=== PATIENT | male | born 1950 | race Caucasian/White ===

== ENCOUNTER → 2017-02-26 | Outpatient (CLI) | payer OTHER | END | disposition home or self-care (01) | LOC: KCIC US 09:27 | DX: K76.0 Fatty (change of) liver, not elsewhere classified (principal) | CPT/HCPCS: 76700 ==

== ENCOUNTER → 2017-04-30 | Outpatient (CLI) | payer OTHER ==
[2017-04-30] MEDS: IOHEXOL 240 MG/ML 50ML VIAL. PO (10:19)
[2017-04-30] MEDS: IOHEXOL 300 MG/ML 100ML VIAL. IV (10:19)
== END | disposition home or self-care (01) ==
LOC: KCIC CT 08:54
DX: N28.89 Other specified disorders of kidney and ureter (principal)
CPT/HCPCS: 74178; 82565; Q9966; Q9967

== ENCOUNTER → 2017-06-05 | Outpatient (CLI) | payer OTHER | END | disposition home or self-care (01) | LOC: KCIC 12:59 | DX: M79.89 Other specified soft tissue disorders (principal); M25.562 Pain in left knee | CPT/HCPCS: 73562 ==

== ENCOUNTER → 2017-06-22 | Outpatient (CLI) | payer OTHER ==
[2017-06-22] MEDS: REGADENOSON 0.4 MG/5 ML DISP.SYRIN. IV (10:35)
== END | disposition home or self-care (01) ==
LOC: ECHO 08:05
DX: I48.91 Unspecified atrial fibrillation (principal); I36.1 Nonrheumatic tricuspid (valve) insufficiency; I25.2 Old myocardial infarction
CPT/HCPCS: 78452; 93017; 93306; 96374; 96375; 96376; A9500; J2785

== ENCOUNTER 2017-06-29 06:30 | Outpatient (CLI) | payer OTHER ==
[2017-06-29 07:10] LABS: HEMATOCRIT 44.7 % (39.0-53.0); HEMOGLOBIN 15.7 g/dL (13.0-17.5); MEAN CORPUSCULAR HEMOGLOBIN 34 pg (25-35); MEAN CORPUSCULAR HGB CONC 35 g/dL (31-37); MEAN CORPUSCULAR VOLUME 98 fL (79-100); PLATELET COUNT 152 x10^3/uL (140-400); RED BLOOD COUNT 4.57 x10^6/uL (4.30-5.70); RED CELL DISTRIBUTION WIDTH 14.1 % (11.5-14.5); WHITE BLOOD COUNT 7.5 x10^3/uL (4.0-11.0)
[2017-06-29 07:19] LABS: INR 1.1 (0.8-1.1); PROTHROMBIN TIME PATIENT 13.7 SEC (11.7-14.0)
[2017-06-29] MEDS ORDERED: LIDOCAINE 2% 20 ML VIAL. (07:23)
[2017-06-29] MEDS ORDERED: IODIXANOL 320 MG/ML 100 ML VIAL. ×2 (07:23→08:21)
[2017-06-29 07:40] LABS: ANION GAP 10 (6-14); BLOOD UREA NITROGEN 24 mg/dL (8-26); CALCIUM 8.8 mg/dL (8.5-10.1); CARBON DIOXIDE 26 mmol/L (21-32); CHLORIDE 108 mmol/L (98-107); GFR 74.8; GLUCOSE 112 mg/dL (70-99); SODIUM 144 mmol/L (136-145)
[2017-06-29] MEDS ORDERED: fentaNYL PF VIAL 100 MCG/2 ML VIAL (07:54)
[2017-06-29] MEDS ORDERED: MIDAZOLAM HCL/PF 2 MG/2 ML VIAL. (07:54)
[2017-06-29] MEDS ORDERED: VERAPAMIL 5 MG/2 ML VIAL. (07:54)
[2017-06-29] MEDS ORDERED: HEPARIN for IV BOLUS 10,000 UNIT/10 ML VIAL. (07:54)
[2017-06-29] MEDS ORDERED: NITROGLYCERIN 200 MCG/2 ML SYRINGE FOR CATH/VASC LAB. ×2 (07:55→09:40)
[2017-06-29] MEDS ORDERED: CONTRAST GIVEN MC (08:30)
[2017-06-29] MEDS: NITROGLYCERIN 200 MCG/2 ML SYRINGE FOR CATH/VASC LAB. IART (08:34)
[2017-06-29] MEDS: IODIXANOL 320 MG/ML 100 ML VIAL. IART (08:34)
[2017-06-29] MEDS: LIDOCAINE 2% 20 ML VIAL. IJ (08:34)
[2017-06-29] MEDS: NITROGLYCERIN 200 MCG/2 ML SYRINGE FOR CATH/VASC LAB. ICAR (08:35)
[2017-06-29] MEDS: MIDAZOLAM HCL/PF 2 MG/2 ML VIAL. IV (08:35)
[2017-06-29] MEDS: VERAPAMIL 5 MG/2 ML VIAL. IART (08:35)
[2017-06-29] MEDS: fentaNYL PF VIAL 100 MCG/2 ML VIAL IV (08:36)
[2017-06-29] MEDS: HEPARIN for IV BOLUS 10,000 UNIT/10 ML VIAL. IV (08:37)
[2017-06-29] MEDS: HEPARIN for IV BOLUS 10,000 UNIT/10 ML VIAL. IART (08:37)
[2017-06-29] MEDS ORDERED: 0.9 % SODIUM CHLORIDE 10 ML DISP.SYRIN. IV (10:00)
[2017-06-29] MEDS ORDERED: NITROGLYCERIN SUBLINGUAL 0.4 MG BOTTLE OF 25. SL (10:00)
== END 2017-06-29 11:24 | disposition home or self-care (01) ==
LOC: CCL 06:30
DX: I25.10 Atherosclerotic heart disease of native coronary artery without angina pectoris (principal); I48.91 Unspecified atrial fibrillation; I42.9 Cardiomyopathy, unspecified; I10 Essential (primary) hypertension
CPT/HCPCS: 36415; 80048; 85027; 85610; 93458; 93571; 99152; 99153; C1769; C1887; C1892; J1644; J2250; J3010; J3490

== ENCOUNTER → 2018-09-14 | Outpatient (CLI) | payer OTHER ==
[2017-09-01 11:20] VITALS: BP 124/82
[~2018-09-14] MED LIST: ALBU2.5V8 INH; APIX5TAB PO; ASPI81TA50 PO; BUDE10.2 IH; FURO-69 PO; METO-239 PO; NAPR-683 PO; PRED-220 PO; SACU1TAB PO
[2018-09-14 08:28] LABS: BASO # 0.1 x10^3/uL (0.0-0.2); BASO % 1 % (0-3); EOS # 0.5 x10^3/uL (0.0-0.7); EOS % 6 % (0-3); HEMATOCRIT 48.8 % (39.0-53.0); HEMOGLOBIN 17.1 g/dL (13.0-17.5); LYMPH # 2.3 x10^3/uL (1.0-4.8); LYMPH % 30 % (24-48); MEAN CORPUSCULAR HEMOGLOBIN 35 pg (25-35); MEAN CORPUSCULAR HGB CONC 35 g/dL (31-37); MEAN CORPUSCULAR VOLUME 98 fL (79-100); MONO # 0.5 x10^3/uL (0.0-1.1); MONO % 7 % (0-9); NEUT # 4.4 x10^3/uL (1.8-7.7); NEUT % 57 % (31-73); PLATELET COUNT 173 x10^3/uL (140-400); RED BLOOD COUNT 4.97 x10^6/uL (4.30-5.70); WHITE BLOOD COUNT 7.9 x10^3/uL (4.0-11.0)
[2018-09-14 08:48] LABS: ALBUMIN 4.2 g/dL (3.4-5.0); ALBUMIN/GLOBULIN RATIO 1.4 (1.0-1.7); CREATININE 1.2 mg/dL (0.7-1.3); GFR 60.2; POTASSIUM 4.1 mmol/L (3.5-5.1); TOTAL BILIRUBIN 0.9 mg/dL (0.2-1.0); TOTAL PROTEIN 7.2 g/dL (6.4-8.2)
[2018-09-14 08:50] LABS: CHOLESTEROL/HDL RATIO 4.6
--- NOTE | 2018-09-14 09:00 | CARD ---
MR#: [id number] Date of Study: 09/14/2018 Ordering Physician: JOSE DE JESUS SINGH, Referring Physician: JOSE DE JESUS SINGH, Tech: Yue Montero [facility] APPROVED REPORT EXAM: Two-dimensional and M-mode echocardiogram with Doppler and color Doppler. Other Information Quality : Technically LimitedHR: 73bpm Rhythm : Pacemaker INDICATION Cardiomyopathy 2D DIMENSIONS RVDd2.9 (2.9-3.5cm)Left Atrium(2D)3.7 (1.6-4.0cm) IVSd1.2 (0.7-1.1cm)Aortic Root(2D)3.3 (2.0-3.7cm) LVDd4.9 (3.9-5.9cm)LVOT Diameter2.0 (1.8-2.4cm) PWd1.2 (0.7-1.1cm)LVDs3.8 (2.5-4.0cm) FS (%) 23.0 %SV51.9 ml LVEF(%)45.0 (>50%) M-Mode DIMENSIONS Left Atrium(MM)3.35 (2.5-4.0cm)Aortic Root3.25 (2.2-3.7cm) Aortic Valve AoV Peak Wesly.108.1cm/sAoV VTI23.1cm AO Peak GR.4.7mmHgLVOT Peak Wesly.68.3cm/s AO Mean GR.3mmHgAVA (VMAX)1.97cm2 ALYSON (VTI)2.00cm2 Mitral Valve MV E Rnlrshwm91.9cm/sMV DECEL IMRI083mn MV A Scyzuvft62.5cm/sE/A Ratio5.3 Pulmonary Valve PV Peak Rfyrcjdd03.3cm/s Tricuspid Valve TR P. Wpxqfkce807kq/sRAP ZHQKAFFJ9jyXw TR Peak Gr.64naFgVXNP63fhFq Pulmonary Vein S1 Hymovrdz78.8cm/sD2 Snpyvmzl75.7cm/s LEFT VENTRICLE The left ventricle is normal size. There is mild concentric left ventricular hypertrophy. The ejectio n fraction is moderately impaired. The Ejection Fraction is 35-40%. There is global hypokinesis of th e left ventricle. Septal motion suggestive of conduction defect. Transmitral Doppler flow pattern is abnormal. RIGHT VENTRICLE The right ventricle is normal size. There is normal right ventricular wall thickness. The right ventr icular systolic function is normal. Pacer lead noted in RV/RA. ATRIA The left atrium size is normal. The right atrium size is normal. The interatrial septum is intact wit h no evidence for an atrial septal defect or patent foramen ovale as noted on 2-D or Doppler imaging. AORTIC VALVE The aortic valve is mildly calcified. The aortic valve is trileaflet. Doppler and Color Flow revealed trace aortic regurgitation. There is no significant aortic valvular stenosis. There is no aortic adamaris vular vegetation. MITRAL VALVE The mitral valve is normal in structure and function. There is no evidence of mitral valve prolapse. There is no mitral valve stenosis. Doppler and Color-flow revealed trace to mild mitral regurgitation . TRICUSPID VALVE The tricuspid valve is normal in structure and function. Doppler and Color Flow revealed trace tricus pid regurgitation. The PA pressure was estimated at 29 mmHg. There is no tricuspid valve prolapse or vegetation. There is no tricuspid valve stenosis. PULMONIC VALVE The pulmonic valve is not well visualized. GREAT VESSELS The aortic root is normal in size. The ascending aorta is normal in size. The IVC is normal in size a nd collapses >50% with inspiration. PERICARDIAL EFFUSION There is no evidence of significant pericardial effusion. Critical Notification Critical Value: No <Conclusion> The ejection fraction is moderately impaired. The Ejection Fraction is 35-40%. There is global hypokinesis of the left ventricle. Septal motion suggestive of conduction defect. Pacer lead noted in RV/RA. Doppler and Color Flow revealed trace tricuspid regurgitation. The PA pressure was estimated at 29 mm Hg. Signed by : Jose De Jesus Singh, Electronically Approved : 09/14/2018 09:00:13
== END | disposition home or self-care (01) ==
LOC: ECHO 07:22
PROVIDERS: ATTEND Internal Medicine Cardiovascular Disease
DX: I08.0 Rheumatic disorders of both mitral and aortic valves (principal); I42.9 Cardiomyopathy, unspecified
CPT/HCPCS: 36415; 80053; 80061; 83721; 83880; 85025; 93306

== ENCOUNTER → 2019-08-25 | Outpatient (CLI) | payer OTHER ==
[2017-09-01 11:20] VITALS: BP 124/82
--- NOTE | 2019-08-25 17:16 | KCIC ---
Examination: HIP LEFT 1 VIEW WITH PELVIS History: Reason: CHRONIC RIGHT HIP PAIN / Spl. Instructions: / History: Comparison/Correlation: None Findings: Frontal view of the pelvis was obtained. Frog leg lateral view of the right hip was obtained. The hip joint spaces are symmetric and normal. No acute fracture or bone destruction. Soft tissues are grossly unremarkable. Impression: No suspicious process. Consider further imaging if occult process is a persistent concern. Electronically signed by: Abdias Car MD (08/25/2019 5:14 PM) [id number]
== END | disposition home or self-care (01) ==
LOC: KCIC 14:12
PROVIDERS: ATTEND Nurse Practitioner Gerontology
DX: M25.551 Pain in right hip (principal)
CPT/HCPCS: 73501

== ENCOUNTER → 2019-09-29 | Outpatient (CLI) | payer MEDICARE ==
[2017-09-01 11:20] VITALS: BP 124/82
--- NOTE | 2019-09-29 08:58 | CARD ---
MR#: [id number] Date of Study: 09/29/2019 Ordering Physician: JOSE DE JESUS SINGH, Referring Physician: JOSE DE JESUS SINGH, Tech: Alicia Ríos [facility] APPROVED REPORT EXAM: Two-dimensional and M-mode echocardiogram with Doppler and color Doppler. Other Information Quality : Fair INDICATION Non-Ischemic Cardiomyopathy Surgery/Intervention Pacemaker: Date: 2018 2D DIMENSIONS RVDd2.6 (2.9-3.5cm)Left Atrium(2D)3.9 (1.6-4.0cm) IVSd1.3 (0.7-1.1cm)Aortic Root(2D)3.3 (2.0-3.7cm) LVDd4.3 (3.9-5.9cm)LVOT Diameter2.2 (1.8-2.4cm) PWd1.3 (0.7-1.1cm)LVDs3.6 (2.5-4.0cm) FS (%) 17.0 %SV29.6 ml LVEF(%)35.9 (>50%) Aortic Valve AoV Peak Wesly.102.5cm/sAoV VTI17.4cm AO Peak GR.4.2mmHgLVOT Peak Wesly.83.0cm/s AO Mean GR.3mmHgAVA (VMAX)2.97cm2 ALYSON (VTI)3.00cm2 Mitral Valve MV E Hcrsqiff54.9cm/sMV DECEL CCHQ090xe MV A Yudmelxf76.5cm/sE/A Ratio2.7 Pulmonary Vein S1 Obpqccqt24.7cm/sD2 Dwduwduz05.4cm/s LEFT VENTRICLE The left ventricle is normal size. There is mild concentric left ventricular hypertrophy. Left ventri dragan systolic function is moderately impaired. The Ejection Fraction is 35-40%. Apical motion consiste nt with pacemaker activation. There is moderate global hypokinesis of the left ventricle. Tissue Dopp ler imaging reveals moderate left ventricular diastolic dysfunction. RIGHT VENTRICLE The right ventricle is normal size. The right ventricular systolic function is normal. There is a pac emaker/ICD lead in the right ventricle. ATRIA The left atrium size is normal. The right atrium size is normal. A pacemaker/ICD is seen in the right atrium consistent with history. The interatrial septum is intact with no evidence for an atrial sept al defect or patent foramen ovale as noted on 2-D or Doppler imaging. AORTIC VALVE The aortic valve is mildly thickened but opens well. Doppler and Color Flow revealed no significant a ortic regurgitation. There is no significant aortic valvular stenosis. MITRAL VALVE The mitral valve is calcified but opens well. Mitral annular calcification is mild. There is no evide nce of mitral valve prolapse. There is no mitral valve stenosis. Doppler and Color-flow revealed trac e mitral regurgitation. TRICUSPID VALVE The tricuspid valve is normal in structure and function. Doppler and Color Flow revealed no tricuspid valve regurgitation noted. There is no tricuspid valve stenosis. PULMONIC VALVE The pulmonic valve is not well visualized. Doppler and Color Flow revealed no pulmonic valvular regur gitation. There is no pulmonic valvular stenosis. GREAT VESSELS The aortic root is normal in size. The ascending aorta is normal in size. The IVC is normal in size a nd collapses >50% with inspiration. PERICARDIAL EFFUSION There is no evidence of significant pericardial effusion. Critical Notification Critical Value: No <Conclusion> Left ventricle systolic function is moderately impaired. The Ejection Fraction is 35-40%. Tissue Doppler imaging reveals moderate left ventricular diastolic dysfunction. There is a pacemaker/ICD lead in the right atrium and ventricle. Trace mitral regurgitation. There is no evidence of significant pericardial effusion. Signed by : Roge Burleson, Electronically Approved : 09/29/2019 08:58:21
== END | disposition home or self-care (01) ==
LOC: ECHO 07:35
PROVIDERS: ATTEND Internal Medicine Cardiovascular Disease
DX: I34.0 Nonrheumatic mitral (valve) insufficiency (principal); I51.7 Cardiomegaly; I42.9 Cardiomyopathy, unspecified; Z95.0 Presence of cardiac pacemaker
CPT/HCPCS: 93306

== ENCOUNTER → 2020-06-22 | Outpatient (CLI) | payer MEDICARE ==
[2017-09-01 11:20] VITALS: BP 124/82
[~2020-06-22] MED LIST changes: +REGADENOSON 0.4 MG/5 ML DISP.SYRIN. IV ONE
[2020-06-22 11:04] LABS: ALBUMIN 4.1 g/dL (3.4-5.0); ALBUMIN/GLOBULIN RATIO 1.5 (1.0-1.7); CALCIUM 8.8 mg/dL (8.5-10.1); CREATININE 1.1 mg/dL (0.7-1.3); GFR 66.4; MAGNESIUM 1.8 mg/dL (1.8-2.4); POTASSIUM 4.3 mmol/L (3.5-5.1); TOTAL BILIRUBIN 0.9 mg/dL (0.2-1.0); TOTAL PROTEIN 6.8 g/dL (6.4-8.2)
--- NOTE | 2020-06-22 14:43 | RAD ---
MR#: [id number] Date of Study: 06/22/2020 Ordering Physician: JOSE DE JESUS SINGH, Referring Physician: CONSTANTIN CHUNG Tech: RT Bea (R) (N) APPROVED REPORT Test Type: Pharmacological Stress Nurse/Tech: Dandre Romero RN Test Indications: CAD Cardiac History: AICD, HTN, See EMR. Medications: See EMR. Medical History: Asthma, See EMR. Resting ECG: V-Paced Resting Heart Rate: 98 bpm Resting Blood Pressure: 128/88mmHg Pretest Chest Pain: No chest pain Nurse/Tech Notes Lungs CTA, Heart tones regular. Consent: The procedure was explained to the patient in lay terms. Informed consent was witnessed. Nithin eout was entered into [facility]. History and Stress Test performed by RT Herb (R) (N) Pharm. Details Pharmacologic stress testing was performed using 0.4mg per 5ml of regadenoson given intravenously ove r 7-10 seconds. Stress Symptoms No chest pain or symptoms. POST EXERCISE Reason for Termination: Infusion complete Max HR: 119 bpm Max Blood Pressure: 142/71mmHg Blood Pressure response to exercise: Normal blood pressure response during stress. Heart Rate response to exercise: WNL Chest Pain: No. Arrhythmia: No. ST Change: No. INTERPRETATION Stress EKG Conclusion: Baseline EKG showed demand ventricular pacing with underlying atrial fibrillat ion. Nondiagnostic changes at peak stress. No other arrhythmias. Imaging Protocol IMAGE PROTOCOL: Rest Tc-99m/stress Tc-99m 1 day Rest: Stress: Viability: Radiopharm.Tc99m DpgevaseoRu89q Sestamibi Cicj94tRs 33mCi Duration 13min. 13min. Img Date 06/22/2020 06/22/2020 Inj-Img Tywv34buj. 60min. Rest Admin Site:IV - Right AntecubitalAdministrator:RT Herb (R)(N) Stress Admin Site: IV - Right AntecubitalAdministrator: RT Herb (R)(N) STRESS DATA End Diast. Vol.121.0mlLVEDV index BSA52.0ml End Syst. Vol.67.0mlLVESV index BSA28.0ml Myocardial Faey162.0gEject. Afudqpgg18.0% Stress Scores Regional WT2.00Summed WT34.00 Regional WM0.00Summed WM19.00 LV Perfusion Scintigraphic images did not show any significant fixed or reversible defects. Wall Motion Mild left ventricle systolic dysfunction with ejection fraction calculated at 45%. LV Perf. Quant 17 Seg. SSS8.00 17 Seg. SRS11.00 17 Seg. SDS1.00 Stress Defect Extent (% LAD)12.50Rest Defect Extent (% LAD)22.50Rev. Defect Extent (% LAD)0.00 Stress Defect Extent (% LCX) 15.00Rest Defect Extent (% LCX)43.80Rev. Defect Extent (% LCX)0.00 Stress Defect Extent (% RCA)11.10Rest Defect Extent (% RCA)15.60Rev. Defect Extent (% RCA)0.00 Stress Defect Extent (% TOI)15.20Rest Defect Extent (% TOI)26.30Rev. Defect Extent (% TOI)0.00 Conclusion 1. Regadenoson cardioisotope stress test did not show any evidence of ischemia or infarct. 2. Mild left ventricle systolic dysfunction with ejection fraction calculated at 45%. 3. Low risk for cardiac events. Signed by : Roge Burleson, Electronically Approved : 06/22/2020 14:43:15
--- NOTE | 2020-06-27 08:10 | CARD ---
MR#: [id number] Date of Study: 06/22/2020 Ordering Physician: JOSE DE JESUS SINGH, Referring Physician: JOSE DE JESUS SINGH, Tech: Rita Tate, [facility] APPROVED REPORT EXAM: Two-dimensional and M-mode echocardiogram with Doppler and color Doppler. Other Information Quality : Average HR: 83bpm INDICATION Cardiomyopathy Non ischemic cardiomyopathy RISK FACTORS Hypertension Asthma 2D DIMENSIONS Left Atrium(2D) 3.8 (1.6-4.0cm) IVSd 0.9 (0.7-1.1cm) Aortic Root(2D) 3.0 (2.0-3.7cm) LVDd 5.0 (3.9-5.9cm) LVOT Diameter 2.1 (1.8-2.4cm) PWd 1.0 (0.7-1.1cm) LVDs 3.2 (2.5-4.0cm) LVEF(%) 42.0 (>50%) Aortic Valve AoV Peak Wesly. 108.5cm/s AoV VTI 18.0cm AO Peak GR. 4.7mmHg LVOT Peak Wesly. 83.6cm/s LVOT VTI 16.35cm AO Mean GR. 3mmHg Mitral Valve MV E Velocity 67.6cm/s MV DECEL TIME 182ms MV A Velocity 32.3cm/s MV PHT 53ms E/A Ratio 2.1 MVA (PHT) 4.17cm2 TDI E/Lateral E' 8.2 E/Medial E' 7.9 Pulmonary Valve PV Peak Velocity 100.2cm/s PV Peak Grad. 4mmHg Tricuspid Valve TR P. Velocity 224cm/s RAP ESTIMATE 3mmHg TR Peak Gr. 24mmHg RVSP 27mmHg LEFT VENTRICLE The left ventricle is normal size. There is normal left ventricular wall thickness. The left ventricular systolic function is mild to moderately impaired. The Ejection Fraction is 40%. Apical motion consistent with pacemaker activation Tissue Doppler imaging reveals moderate left ventricular diastolic dysfunction. RIGHT VENTRICLE The right ventricle is normal size. There is normal right ventricular wall thickness. The right ventricular systolic function is normal. There is a pacemaker lead in the right ventricle. ATRIA The left atrium is mildly dilated. The right atrium is borderline dilated. The interatrial septum is intact with no evidence for an atrial septal defect or patent foramen ovale as noted on 2-D or Doppler imaging. AORTIC VALVE The aortic valve is thickened but opens well. Doppler and Color Flow revealed trace aortic regurgitation. There is no significant aortic valvular stenosis. Calculated aortic valve area is 3.08 cm2 with maximum pressure gradient of 5 mmHg and mean pressure gradient of 3 mmHg. MITRAL VALVE The mitral valve is normal in structure and function. There is no evidence of mitral valve prolapse. There is no mitral valve stenosis. Doppler and Color-flow revealed trace mitral regurgitation. TRICUSPID VALVE The tricuspid valve is normal in structure and function. Doppler and Color Flow revealed trace tricuspid regurgitation with an estimated PAP of 27 mmHg. There is no tricuspid valve stenosis. PULMONIC VALVE The pulmonic valve is not well visualized. Doppler and Color Flow revealed trace pulmonic valvular regurgitation. GREAT VESSELS The aortic root is normal in size. The IVC is normal in size and collapses >50% with inspiration. PERICARDIAL EFFUSION There is no evidence of significant pericardial effusion. Critical Notification Critical Value: No <Conclusion> The left ventricular systolic function is mild to moderately impaired. The Ejection Fraction is 40%. Tissue Doppler imaging reveals moderate left ventricular diastolic dysfunction. Pacer lead noted in RA/RV. Trace mitral regurgitation. Trace tricuspid regurgitation with an estimated PAP of 27 mmHg. There is no evidence of significant pericardial effusion. Signed by : Roge Burlseon, Electronically Approved : 06/22/2020 13:29:27 [id number]
== END ==
LOC: ECHO 09:36
PROVIDERS: ATTEND Internal Medicine Cardiovascular Disease
DX: I42.9 Cardiomyopathy, unspecified (principal); I10 Essential (primary) hypertension
CPT/HCPCS: 36415; 78452; 80053; 83735; 83880; 93017; A9500; J2785; 93306

== ENCOUNTER → 2021-01-23 | Outpatient (CLI) | payer MEDICARE ==
[2017-09-01 11:20] VITALS: BP 124/82
[~2021-01-23] MED LIST changes: -REGADENOSON 0.4 MG/5 ML DISP.SYRIN. IV ONE
--- NOTE | 2021-01-23 15:09 | KCIC ---
EXAM: AP, lateral, swimmer's and odontoid views of the cervical spine DATE: 01/23/2021 11:33 AM CLINICAL HISTORY: Reason: Neck pain, Lt radiculopathy. / Spl. Instructions: / History: COMPARISON: None available. FINDINGS: On the lateral view, the cervical spine is imaged from the skull base to mid C6. Vertebral body heights are preserved. Mild C4-5 disc height loss. Small anterior endplate osteophytes C3-C6. No spondylolisthesis. No offset of the lateral masses of C1 on C2. Normal predental space. No significant prevertebral soft tissue swelling. IMPRESSION: 1. Multilevel spondylosis as above 2. Negative acute fracture or subluxation. Electronically signed by: Sumeet Mehta MD (01/23/2021 3:07 PM) [id number]
--- NOTE | 2021-01-23 16:10 | KCIC ---
EXAM: AP, lateral and lumbosacral spot views of the lumbar spine DATE: 01/23/2021 11:33 AM INDICATION: Reason: Low back pain, Lt radiculopathy. / Spl. Instructions: / History: COMPARISON: No Prior FINDINGS: 5 nonrib-bearing lumbar vertebral bodies. Vertebral body heights are preserved. Curvature of the lumbar spine apex L3. Mild L4-5 and L5-S1 disc height loss. Facet degenerative mckeon es L3-4 and below. No spondylolisthesis. Vascular calcifications are seen. IMPRESSION: 1. Multilevel spondylosis as above 2. Negative acute fracture or subluxation. Electronically signed by: Sumeet Mehta MD (01/23/2021 4:08 PM) [id number]
== END ==
LOC: KCIC 11:29
PROVIDERS: ATTEND Family Medicine
DX: M47.816 Spondylosis without myelopathy or radiculopathy, lumbar region (principal); M51.36 Other intervertebral disc degeneration, lumbar region; M43.8X6 Other specified deforming dorsopathies, lumbar region; M47.812 Spondylosis without myelopathy or radiculopathy, cervical region; M25.78 Osteophyte, vertebrae; M50.321 Other cervical disc degeneration at C4-C5 level
CPT/HCPCS: 72040; 72100

== ENCOUNTER → 2021-02-13 | Outpatient (CLI) | payer MEDICARE ==
[2017-09-01 11:20] VITALS: BP 124/82
--- NOTE | 2021-02-13 08:44 | KCIC ---
EXAM: Abdomen sonogram. HISTORY: Pain. TECHNIQUE: Sonographic imaging of the abdomen was performed. COMPARISON: None. FINDINGS: The liver is normal in size. There is echogenic liver parenchyma likely due to mild hepatic steatosis. The common bile duct is normal in caliber. The gallbladder is unremarkable. The kidneys a re normal in size. There is a 2.2 cm cyst with thin internal septation within the right kidney. The s pleen is mildly enlarged and contains calcified granulomas. The pancreas, aorta and inferior vena cav a are obscured due to bowel gas. IMPRESSION: 1. Mild hepatic steatosis. 2. 2.2 cm complicated right renal cyst with suspected thin internal septation. This may correspond wi th a suspected cyst or calyceal diverticulum demonstrated on a CT performed 04/30/2017. Precautionary s onographic follow-up in 6 months can be performed to confirm stability. 3. Mild splenomegaly. 4. Obscured midline structures due to bowel gas. Electronically signed by: Helene Rendon MD (02/13/2021 8:42 AM) [id number]
== END ==
LOC: KCIC US 07:56
PROVIDERS: ATTEND Family Medicine
DX: R16.1 Splenomegaly, not elsewhere classified (principal); K76.0 Fatty (change of) liver, not elsewhere classified; N28.1 Cyst of kidney, acquired; R14.3 Flatulence
CPT/HCPCS: 76700

== ENCOUNTER → 2021-03-06 | Outpatient (CLI) | payer MEDICARE ==
[2017-09-01 11:20] VITALS: BP 124/82
--- NOTE | 2021-03-06 15:07 | KCIC ---
EXAM: Head CT without contrast. HISTORY: Transient ischemic attack. Left arm weakness. TECHNIQUE: Computed tomographic images of the head were obtained without contrast. *One or more of the following individualized dose reduction techniques were utilized for this examina tion: 1. Automated exposure control. 2. Adjustment of the mA and/or kV according to patient size. 3. Use of iterative reconstruction technique. COMPARISON: None. FINDINGS: There is no acute or subacute extra-axial or intraparenchymal hemorrhage. There is no mass effect or midline shift. There is no hydrocephalus. The roe-white matter differential pattern is intact. There is moderate paranasal sinus mucosal thick ening and evidence of prior right maxillary antrostomy/uncinectomy surgery. The mastoid air cells are clear. There is no suspicious calvarial lesion. IMPRESSION: No acute intracranial finding. Note is made that MRI is more sensitive for acute infarcti on. Electronically signed by: Helene Rendon MD (03/06/2021 3:05 PM) [id number]
--- NOTE | 2021-03-06 15:57 | KCIC ---
EXAM: Carotid Doppler sonogram. HISTORY: Carotid bruit. Atherosclerosis. TECHNIQUE: Gutiérrez scale and color Doppler sonographic evaluation of the neck with spectral waveform malik lysis was performed and static images are submitted for review. FINDINGS: The peak systolic velocity within the right common carotid artery is 120 cm/sec. The peak s ystolic velocity within the right internal carotid artery is 93 cm/sec and the end diastolic velocity within the right internal carotid artery is 32 cm/sec. The right ICA/CCA ratio is 0.78. The peak systolic velocity within the left common carotid artery is 109 cm/sec. The peak systolic araceli ocity within the left internal carotid artery is 81 cm/sec and the end diastolic velocity within the left internal carotid artery is 30 cm/sec. The left ICA/CCA ratio is 0.74. There is normal antegrade flow within both vertebral arteries. There is a prominent left cervical jose in lymph node measuring 1.2 cm in long axis. This maintains a fatty hilum and is likely pathologic re active. IMPRESSION: Doppler findings consistent with less than 50 percent stenosis involving the internal car otid arteries. PQRS Compliance Statement - Stenosis calculations for CT, MR and conventional angiography are based u eduard measurement of the distal ICA diameter in accordance with the NASCET methodology. Stenosis calcu lations for carotid ultrasound studies are derived from validated velocity criteria which are known t o correlate with the NASCET methodology. Electronically signed by: Helene Rendon MD (03/06/2021 3:55 PM) [id number]
== END ==
LOC: KCIC CT 14:43
PROVIDERS: ATTEND Psychiatry & Neurology Neurology with Special Qualifications in Child Neurology
DX: G45.9 Transient cerebral ischemic attack, unspecified (principal); J34.89 Other specified disorders of nose and nasal sinuses
CPT/HCPCS: 70450; 93880